=== PATIENT | male | born 1995 | race Caucasian/White ===

== ENCOUNTER 2018-11-12 13:43 | Emergency (ER) | payer OTHER, SELFPAY ==
[2018-11-12 13:43] VITALS: BP 134/83; PULSE 73; RESP 14; TEMP 36.4; O2SAT 98; BMI 29.1
[2018-11-12] MEDS: 0.9% Normal Saline 1,000 ML 999 ML IV (14:12)
[2018-11-12] MEDS: Ketorolac 30 MG/ML Syringe IV (14:12)
[2018-11-12] MEDS: Metoclopramide 10 MG/2 ML Vial IV (14:12)
[2018-11-12] MEDS: DiphenhydrAMINE 50 MG/ML Syringe 25 MG IV (14:12)
--- NOTE | 2018-11-12 15:11 | ED.VISSUMM ---
- ER Visit Summary Date of Service: 11/12/18 Chief Complaint: Headache History of Present Illness: The patient is a 23 M with migraine headache that started at noon today. He does have a history of migraines. Denies any recent URI symptoms or head trauma. He reports nausea and photophobia. Physical Examination: Vital signs unremarkable. Patient lying in a darkened room. He is in no acute distress. Head and neck examination unremarkable. There is no meningismus. Heart is regular rate and rhythm. Lung sounds are clear. Abdomen soft nontender. Neuro exam is normal. Test Results: [] Emergency Department Course and Treatment: Patient was given Toradol, Reglan, Benadryl, and IV fluids. On repeat evaluation he is improved. Treatment Plan: [] Disposition: Discharge Impression: Migraine, improved This note was generated with [employer] dictation software. It may contain incorrect words, spelling, and punctuation that were not noted in review of the chart prior to signing ED Disposition - Plan for ED Patient: Disposition: Home or Assisted Living Instructions: ED Headache Migraine Referrals: Jose Egan [Primary Care Provider] - 1-2 Days if not improving
[2018-11-12 15:31] VITALS: PULSE 86; RESP 14; O2SAT 99
== END 2018-11-12 15:32 | disposition home or self-care (01) ==
PROVIDERS: Emergency Provider Emergency Medicine; Family Provider Family Medicine; PCP Family Medicine
DX: G43.909 Migraine, unspecified, not intractable, without status migrainosus (principal); J45.909 Unspecified asthma, uncomplicated
CPT/HCPCS: 96361; 96374; 96375; 99283; J7030; A4216

== ENCOUNTER 2020-01-26 17:59 | Emergency (ER) | payer OTHER, SELFPAY ==
[2020-01-26 18:02] VITALS: BP 154/67; PULSE 99; RESP 17; TEMP 36.7; O2SAT 96; BMI 32.2
[2020-01-26 18:41] VITALS: BP 154/67; PULSE 99; RESP 17; TEMP 36.6; O2SAT 96
--- NOTE | 2020-01-26 18:52 | EKG12_ITS ---
Test Reason : SOB Blood Pressure : / mmHG Vent. Rate : 080 BPM Atrial Rate : 080 BPM P-R Int : 154 ms QRS Dur : 090 ms QT Int : 364 ms P-R-T Axes : 058 046 039 degrees QTc Int : 419 ms Normal sinus rhythm with sinus arrhythmia Normal ECG Confirmed by ANASTACIA CANTOR, MARCELO ([id number]), publishing editor VERONIKA BOSWELL ([id number]) on 01/28/2020 10:57:01 AM Referred By: Confirmed By:MARCELO GALAVIZ MD
--- NOTE | 2020-01-26 18:53 | ED.VIS.DYS ---
History of Present Illness Chief Complaint: Shortness of Breath Informant: Patient Onset: Days - 2-3 Timing: Continuous Quality: - - difficult to take a deep breath Current Severity: Moderate Maximum Severity: Moderate Worsened by: Exertion Relieved by: Rest Associated Symptoms: Negative for: Chills, Cough, Fever Chest Pain: Pressure - substernal Narrative: For several days patient has been feeling pressure/heaviness in his chest nonlateralizing, nonradiating, as well as difficulty taking a breath. He has a history of asthma but states he has not dealt with any issues since he was small. He does not have any inhalers and has tried no treatments for this. He denies any swelling in his legs, pleuritic discomfort, orthopnea, fevers chills, cough. He states before this started, he was painting a house all week and spent about 50 hours doing this. He was using latex water-based paint, and an electric airgun that uses air, no other propellants. He had none of these symptoms while he was painting. This started the evening or night after he finished. Patient presents during the national coronavirus emergency declaration/pandemic. He denies any known contact with anyone infected with COVID-19. He denies traveling out of the immediate area recently. - Past Medical History (1) Asthma Status: Chronic Past Medical History - Allergies and Home Meds Allergies/Adverse Reactions: Allergies amoxicillin [From Augmentin] Allergy (Verified 01/26/20 18:01) Rash clavulanic acid [From Augmentin] Allergy (Verified 01/26/20 18:01) Rash CLEAR MEDICAL TAPE Allergy (Uncoded 01/26/20 18:01) Rash Primary Care Physician: Jose Egan MD [Primary Care Provider] - Smoking Status: Former smoker - 2 packs/day, quit 1 month ago cold turkey Review of Systems General: Denies: Chills, Fever, Sweats Eyes: Denies: Visual changes - bilaterally, Diplopia ENT: Denies: Bilateral ear pain, Rhinorrhea, Sore throat Cardiovascular: Reports: Chest pain. Denies: Palpitations Respiratory: Reports: Dyspnea. Denies: Cough, Dyspnea on exertion Gastrointestinal: Denies: Abdominal pain, Nausea, Vomiting, Diarrhea, Melena, Hematochezia Genitourinary: Denies: Dysuria, Hematuria, Frequency Musculoskeletal: Denies: Back pain, Swelling, Extremity Pain Skin: Denies: Rash, Wounds Neurological: Denies: Headache, Weakness, Numbness Physical Exam Vital Signs/Narrative: Vital Signs Temp Pulse Resp BP Pulse Ox 01/26/20 18:41 98 F 99 17 154/67 H 96 01/26/20 18:02 98.0 F 99 17 154/67 H 96 Inital Vital Signs reviewed: Yes General: Well nourished, Well developed, No Acute Distress Head: Normocephalic, Atraumatic Eyes: Perrl, EOMI ENT: Moist mucous membranes, No rhinorrhea Neck: Supple, Nontender Cardiovascular: Regular rate, Regular rhythm, No murmurs. Negative for: Tachycardia Respiratory: No distress, CTA bilaterally, Chest nontender, Diminished - Patient stutters his breathing when taking deep breaths, but not splinting due to any pain Abdomen: Soft, Nontender, Nondistended, Normal bowel sounds Back: Nontender, Normal Inspection Extremities: Nontender, No edema. Negative for: Calf Tenderness Skin: Normal color, No rash, No Trauma Neurological: Alert, Oriented x3, Cranial nerves II-XII grossly intact, Normal Strength, Normal Sensation, Normal Gait Psychological: Normal affect, Normal Mood Diagnostic/Tx/Re-eval Clinical Impression(s) from Imaging Studies Chest X-Ray 01/26/20 19:05 IMPRESSION: Normal x-ray examination of the chest. Electronically Signed: Shelton Cartagena MD at 19:33 EDT , Service support , - Rhythm Strip Rhythm Strip: Sinus Rhythm Rate: 80 Ectopy: None - EKG Initial EKG Interpretation: Sinus Rhythm, No Acute Injury Pattern Prior: Unchanged Treatment - Dyspnea: Albuterol, Atrovent Repeat Evaluation: Improved - Medical Decision Making Patient feels better after nebulizer treatments, his EKG and chest x-ray are normal. I do not think he needs further work-up, this is some type of reactive airway issue. He is amenable to a short burst of steroids and an albuterol inhaler to use as needed since he does not have any anymore. Discussed reasons to return he is comfortable with that plan. ED Disposition - Plan for ED Patient: Disposition: Home or Assisted Living Diagnosis: Reactive airway disease Instructions: ED REACTIVE AIRWAY DISEASE Adult Prescriptions: Prednisone [Deltasone] 40 mg PO DAILY #10 tab Prescription Printed Albuterol Inhaler [Ventolin Hfa] 1 - 2 puff INHALATION Q4H PRN PRN #1 inhaler PRN Reason: Wheezing Prescription Printed Referrals: Jose Egan MD [Primary Care Provider] - 3-5 Days if not improving
[2020-01-26 19:05] VITALS: PULSE 102; RESP 14
[2020-01-26] MEDS: Ipratropium/Albuterol Sulfate 3 ML AMPUL.NEB INHALATION (19:05)
[2020-01-26] MEDS: Albuterol 2.5 MG/3 ML VIAL.NEB. INHALATION (19:05)
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
[2020-01-26 20:00] VITALS: RESP 18
[2020-01-26 20:38] VITALS: BP 121/74; PULSE 81; RESP 18; O2SAT 99
== END 2020-01-26 20:39 | disposition home or self-care (01) ==
PROVIDERS: Emergency Provider Emergency Medicine; PCP Family Medicine
DX: J45.909 Unspecified asthma, uncomplicated (principal); Z87.891 Personal history of nicotine dependence; Z88.0 Allergy status to penicillin; Z88.1 Allergy status to other antibiotic agents
CPT/HCPCS: 71045; 93005; 94640; 99282

== ENCOUNTER 2020-03-05 07:35 | Emergency (ER) | payer OTHER, SELFPAY ==
[2020-03-05 07:36] VITALS: BP 177/113; PULSE 85; RESP 18; TEMP 36.7; O2SAT 100; BMI 33.8
[2020-03-05 07:42] VITALS: TEMP 36.6; O2SAT 100
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
--- NOTE | 2020-03-05 09:06 | ED.RN ---
[facility] HERE TO TALK WITH PT
[2020-03-05] MEDS: Ibuprofen 400 MG Tablet 800 MG PO (10:34)
[2020-03-05 10:56] VITALS: BP 134/87; PULSE 78; RESP 18; O2SAT 99
== END 2020-03-05 11:45 | disposition home or self-care (01) ==
PROVIDERS: Emergency Provider Emergency Medicine; PCP Family Medicine
DX: S00.81XA Abrasion of other part of head, initial encounter (principal); S16.1XXA Strain of muscle, fascia and tendon at neck level, initial encounter; S06.0X9A Concussion with loss of consciousness of unspecified duration, initial encounter; V43.53XA Car driver injured in collision with pick-up truck in traffic accident, initial encounter; Y93.89 Activity, other specified; Y92.410 Unspecified street and highway as the place of occurrence of the external cause; Y99.9 Unspecified external cause status
CPT/HCPCS: 70450; 72125; 73110; 99284

== ENCOUNTER 2020-03-19 17:20 | Emergency (ER) | payer OTHER, SELFPAY ==
[2020-03-19 17:21] VITALS: BP 140/90; PULSE 96; RESP 16; TEMP 36.3; O2SAT 98; BMI 33.3
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
[2020-03-19] MEDS: DiphenhydrAMINE 50 MG/ML Syringe 25 MG IV (19:05)
[2020-03-19] MEDS: Metoclopramide 10 MG/2 ML Vial 5 MG IV (19:08)
[2020-03-19] MEDS: Ketorolac 30 MG/ML Syringe IV (19:08)
== END 2020-03-19 20:27 | disposition home or self-care (01) ==
PROVIDERS: Emergency Provider Emergency Medicine; PCP Family Medicine
DX: R51 Headache (principal); Z87.891 Personal history of nicotine dependence; G89.29 Other chronic pain
CPT/HCPCS: 96374; 96375; 99282; A4216

== ENCOUNTER 2022-03-14 18:42 | Emergency (ER) | payer OTHER, SELFPAY ==
[2022-03-14 18:43] VITALS: BP 128/94; PULSE 93; RESP 16; TEMP 36.8; O2SAT 96; BMI 30.9
== END 2022-03-14 20:00 | disposition left against medical advice (07) ==
LOC: ED 21:15
PROVIDERS: PCP Family Medicine
DX: M54.9 Dorsalgia, unspecified (principal)